=== PATIENT | male | born 1975 | race Caucasian/White ===

== ENCOUNTER 2018-04-22 12:21 | Outpatient (REF) | payer MEDICARE, MEDICAID, SELFPAY ==
[2018-04-22 20:16] LABS: Abs Immature Grans 0.01 k/cumm (0.0-0.09); Absolute Basophil Count 0.01 k/cumm (0.0-0.2); Absolute Lymphocyte Count 1.02 k/cumm (1.2-3.4); Absolute Monocyte Count 0.42 k/cumm (0.11-0.7); Absolute Neutrophil Count 2.12 k/cumm (1.2-6.7); Basophils % 0.3; HCT 47.3 % (40.0-50.0); HGB 16.4 g/dL (13.5-17.5); Immature Grans % 0.3; Lymphocytes % 28.5; Mean Corp. HGB Concentration 34.7 g/dL (32.0-36.0); Mean Corpuscular Hemoglobin 32.1 pg (27.0-33.0); Mean Corpuscular Volume 92.6 fL (80-95); Mean Platelet Volume 9.7 fL (8.0-11.0); Monocytes % 11.7; Neutrophils % 59.2; Platelet Count 211 x1000/uL (130-400); RBC 5.11 m/cumm (4.50-6.00); RBC Distribution Width 12.7 % (11.8-14.1); White Blood Cell Count 3.58 k/cumm (4.4-10.8)
[2018-04-22 20:36] LABS: ALT 42 U/L (12-78); AST 20 U/L (15-37); Albumin 4.2 g/dL (3.4-5.0); Alkaline Phosphatase 87 U/L (46-116); Anion Gap 6.6 mmol/L (3-11); BUN 16 mg/dL (7-18); Bilirubin, Total 0.5 mg/dL (0.2-1.0); CO2 30.4 mmol/L (21.0-32.0); CREATININE 0.96 mg/dL (0.70-1.30); Chloride 103 mmol/L (98-107); Cholesterol 197 mg/dL (50-200); Glucose 89 mg/dL (70-100); HDL Cholesterol 61 mg/dL (40-60); LDL CHOLESTEROL 116 mg/dL (<100); Potassium 5.1 mmol/L (3.5-5.1); Sodium 140 mmol/L (136-145); TSH 0.59 uIU/mL (0.358-3.74); Total Protein 6.8 g/dL (6.4-8.2); Triglyceride 44 mg/dL (30-150)
[2018-04-22 20:53] LABS: FREE T4 1.01 ng/dL (0.76-1.46)
== END 2018-04-22 12:41 ==
LOC: NCHCN 12:21
PROVIDERS: PCP Internal Medicine; Visit Provider Internal Medicine
DX: D72.819 Decreased white blood cell count, unspecified (principal); E89.0 Postprocedural hypothyroidism; F06.8 Other specified mental disorders due to known physiological condition
CPT/HCPCS: 80053; 80061; 83721; 84439; 84443; 85025

== ENCOUNTER 2019-06-24 12:01 | Outpatient (REF) | payer MEDICARE, MEDICAID, SELFPAY ==
[2019-06-24 20:29] LABS: HCT 43.6 % (40.0-50.0); HGB 15.5 g/dL (13.5-17.5); Mean Corp. HGB Concentration 35.6 g/dL (32.0-36.0); Mean Corpuscular Hemoglobin 32.6 pg (27.0-33.0); Mean Corpuscular Volume 91.6 fL (80-95); Mean Platelet Volume 9.6 fL (8.0-11.0); Platelet Count 223 x1000/uL (130-400); RBC 4.76 m/cumm (4.50-6.00); RBC Distribution Width 12.5 % (11.8-14.1); White Blood Cell Count 3.48 k/cumm (4.4-10.8)
[2019-06-24 20:44] LABS: ALT 31 U/L (16-63); AST 18 U/L (15-37); Albumin 4.1 g/dL (3.4-5.0); Alkaline Phosphatase 83 U/L (46-116); Anion Gap 10.7 mmol/L (3-11); BUN 13 mg/dL (7-18); Bilirubin, Total 0.4 mg/dL (0.2-1.0); CO2 27.3 mmol/L (21.0-32.0); CREATININE 0.93 mg/dL (0.70-1.30); Calcium 8.8 mg/dL (8.5-10.1); Chloride 105 mmol/L (98-107); Glucose 98 mg/dL (74-106); LDL CHOLESTEROL 102 mg/dL (<100); Potassium 4.4 mmol/L (3.5-5.1); Sodium 143 mmol/L (136-145); TROPONIN-I 9.8 ug/mL (4.0-12.0); TSH 0.06 uIU/mL (0.36-3.74); Total Protein 6.5 g/dL (6.4-8.2)
== END 2019-06-24 12:21 ==
LOC: NCHCN 12:01
PROVIDERS: PCP Internal Medicine; Visit Provider Internal Medicine
DX: E89.0 Postprocedural hypothyroidism (principal); D72.819 Decreased white blood cell count, unspecified; E66.3 Overweight; Z51.81 Encounter for therapeutic drug level monitoring
CPT/HCPCS: 80053; 83721; 85027; 80156; 84443

== ENCOUNTER 2019-07-28 10:27 | Outpatient (REF) | payer MEDICARE, MEDICAID, SELFPAY ==
[2019-07-28 19:18] LABS: FREE T4 1.09 ng/dL (0.76-1.46); TSH 0.12 uIU/mL (0.36-3.74)
== END 2019-07-28 10:47 ==
LOC: NCHCN 10:27
PROVIDERS: PCP Internal Medicine; Visit Provider Physician Assistant
DX: E89.0 Postprocedural hypothyroidism (principal)
CPT/HCPCS: 84439; 84443

== ENCOUNTER 2019-09-15 08:38 | Outpatient (REF) | payer MEDICARE, MEDICAID, SELFPAY ==
[2019-09-15 19:44] LABS: TSH 0.07 uIU/mL (0.36-3.74)
== END 2019-09-15 08:58 ==
LOC: NCHCN 08:38
PROVIDERS: PCP Internal Medicine; Visit Provider Internal Medicine
DX: E89.0 Postprocedural hypothyroidism (principal)
CPT/HCPCS: 84443

== ENCOUNTER 2019-10-27 14:00 | Outpatient (REF) | payer MEDICARE, MEDICAID, SELFPAY ==
[2019-10-27 20:14] LABS: FREE T4 1.07 ng/dL (0.76-1.46)
== END 2019-10-27 14:20 ==
LOC: NCHCN 14:00
PROVIDERS: PCP Internal Medicine; Visit Provider Internal Medicine
DX: E89.0 Postprocedural hypothyroidism (principal)
CPT/HCPCS: 84439; 84443

== ENCOUNTER 2020-08-26 12:18 | Outpatient (REF) | payer MEDICARE, MEDICAID, SELFPAY ==
[2020-08-26 18:43] LABS: HCT 45.3 % (40.0-50.0); HGB 15.4 g/dL (13.5-17.5); MCH 32.8 pg (27.0-33.0); MCV 96.4 fL (80-95); MPV 9.3 fL (8.0-11.0); Platelet Count 195 10^3/uL (130-400); RDW-SD 43.3 fL
[2020-08-26 19:26] LABS: ALT 37 U/L (16-63); AST 24 U/L (15-37); Albumin 4.2 g/dL (3.4-5.0); Alkaline Phosphatase 64 U/L (46-116); Anion Gap 4.8 mmol/L (3-11); BUN 14 mg/dL (7-18); Bilirubin, Total 0.4 mg/dL (0.2-1.0); CO2 33.2 mmol/L (21.0-32.0); CREATININE 0.9 mg/dL (0.70-1.30); Calcium 8.5 mg/dL (8.5-10.1); Calculated LDL 97 mg/dL (<100); Chloride 103 mmol/L (98-107); Cholesterol 192 mg/dL (<200); Glucose 86 mg/dL (74-106); HDL Cholesterol 84 mg/dL (40-60); Potassium 4.1 mmol/L (3.5-5.1); Sodium 141 mmol/L (136-145); TROPONIN-I 7.7 ug/mL (4.0-12.0); Total Protein 6.8 g/dL (6.4-8.2); Triglyceride 55 mg/dL (<150)
== END 2020-08-26 12:19 | disposition home or self-care (01) ==
LOC: NCHCN 12:18
PROVIDERS: PCP Internal Medicine; Visit Provider Internal Medicine
DX: N32.89 Other specified disorders of bladder (principal); Z87.820 Personal history of traumatic brain injury; Z79.899 Other long term (current) drug therapy; Z51.81 Encounter for therapeutic drug level monitoring; E89.0 Postprocedural hypothyroidism; Z00.00 Encounter for general adult medical examination without abnormal findings
CPT/HCPCS: 80053; 80061; 85027; 80156; 84443

== ENCOUNTER 2021-09-13 18:03 | Outpatient (REF) | payer MEDICARE, MEDICAID, SELFPAY ==
[2021-09-13 22:19] LABS: BUN 20 mg/dL (7-18); Bilirubin, Total 0.5 mg/dL (0.2-1.0); Chloride 105 mmol/L (98-107); Sodium 141 mmol/L (136-145); Total Protein 6.6 g/dL (6.4-8.2)
[2021-09-13 22:27] LABS: ALT 29 U/L (16-63); AST 25 U/L (15-37); Albumin 4.2 g/dL (3.4-5.0); Alkaline Phosphatase 78 U/L (46-116); Anion Gap 11.5 mmol/L (3-11); CO2 24.5 mmol/L (21.0-32.0); Calcium 8.4 mg/dL (8.5-10.1); Glucose 89 mg/dL (74-106); LDL CHOLESTEROL 118 mg/dL (<100); Potassium 4.1 mmol/L (3.5-5.1); TROPONIN-I 10.2 ug/mL (4.0-12.0); TSH 2.47 uIU/mL (0.36-3.74)
== END 2021-09-13 18:04 | disposition home or self-care (01) ==
LOC: NCHCN 18:03
PROVIDERS: PCP Internal Medicine; Visit Provider Internal Medicine
DX: E89.0 Postprocedural hypothyroidism (principal); F32.9 Major depressive disorder, single episode, unspecified; F06.8 Other specified mental disorders due to known physiological condition; Z51.81 Encounter for therapeutic drug level monitoring; Z79.899 Other long term (current) drug therapy
CPT/HCPCS: 80053; 83721; 80156; 84443

== ENCOUNTER 2021-12-27 12:21 | Outpatient (REF) | payer MEDICARE, MEDICAID, SELFPAY ==
[2021-12-27 20:30] LABS: Bilirubin Negative (Negative); Blood Negative (Negative); Clarity Clear (Clear); Glucose Negative (Negative); Ketones Negative (Negative); Leukocyte Esterase Negative (Negative); Nitrite Negative (Negative); Specific Gravity 1.015 (1.005-1.025); Urobilinogen 0.2 EU/dL (Up TO 0.2)
== END 2021-12-27 12:22 | disposition home or self-care (01) ==
LOC: NCHCN 12:21
PROVIDERS: PCP Internal Medicine; Visit Provider Nurse Practitioner Family
DX: R35.0 Frequency of micturition (principal)
CPT/HCPCS: 81003

== ENCOUNTER 2022-09-10 17:59 | Outpatient (REF) | payer MEDICARE, MEDICAID, SELFPAY ==
[2022-09-10 20:53] LABS: ALT 55 U/L (16-63); AST 39 U/L (15-37); Albumin 4.2 g/dL (3.4-5.0); Alkaline Phosphatase 62 U/L (46-116); Anion Gap 8.4 mmol/L (3-11); BUN 16 mg/dL (7-18); Bilirubin, Total 0.3 mg/dL (0.2-1.0); CO2 29.6 mmol/L (21.0-32.0); Calcium 9.5 mg/dL (8.5-10.1); Chloride 106 mmol/L (98-107); Estimated GFR 92.26 (mL/min/1.73m2); Glucose 99 mg/dL (74-106); Potassium 4.9 mmol/L (3.5-5.1); Sodium 144 mmol/L (136-145); TSH (W/Ref FT4) 5.24 uIU/mL (0.36-3.74); Total Protein 7.4 g/dL (6.4-8.2)
[2022-09-10 21:22] LABS: FREE T4 0.83 ng/dL (0.76-1.46)
[2022-09-12 10:20] LABS: Hepatitis C Ab w Rflx HCV PCR Negative (Negative)
[2022-09-12 10:29] LABS: HIV-1/2 Ag & Ab Screen Negative (Negative)
== END 2022-09-10 18:00 | disposition home or self-care (01) ==
LOC: NCHCN 17:59
PROVIDERS: PCP Internal Medicine; Visit Provider Internal Medicine
DX: R63.4 Abnormal weight loss (principal); D89.0 Polyclonal hypergammaglobulinemia; Z11.4 Encounter for screening for human immunodeficiency virus [HIV]; Z11.59 Encounter for screening for other viral diseases
CPT/HCPCS: 80053; 86803; 87389; 84439; 84443

== ENCOUNTER → 2022-09-13 13:19 | Outpatient (BNVA) | payer MEDICARE, MEDICAID, SELFPAY | PROVIDERS: PCP Internal Medicine; Referring Provider Internal Medicine; Visit Provider Physical Therapy Assistant | DX: Z12.11 Encounter for screening for malignant neoplasm of colon (principal) ==

== ENCOUNTER 2022-10-04 07:28 | Day surgery (SDC) | payer MEDICARE, MEDICAID, SELFPAY ==
[2022-10-04 07:38] VITALS: BP 121/82; PULSE 71; RESP 16; TEMP 36.1; O2SAT 98
[2022-10-04] MEDS: Lactated Ringers 1,000 ML 80 ML IV (08:20)
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
[2022-10-04 08:36] VITALS: BMI 26.1
--- NOTE | 2022-10-04 08:46 | W.PM.DSUDISC ---
Date of service: 10/04/22 Time of Service: 08:46 Discharge Plan Disposition Patient Disposition: Home Condition: Good Discharge Details Reason For Visit: Colonoscopy Attending Provider: Asa Niño Primary Care Provider: Milton Matthew Home Meds and New Rx's Prescriptions: Continued Myrbetriq 50 mg tablet extended release 24 hr 50 mg PO DAILY acetaminophen 500 MG tablet 500 mg PO DAILY levothyroxine [Synthroid] 100 MCG tablet 200 mcg PO DAILY magnesium hydroxide [Milk of Magnesia] 400 MG/5 ML suspension 5 ml PO ONCE simvastatin 20 MG tablet 40 mg PO DAILY simethicone 125 MG tablet,chewable 125 mg PO DAILY risperidone [Risperdal] 0.5 MG tablet 1 mg PO BID ibuprofen [Ibuprofen Jr Strength] 100 MG tablet,chewable 200 mg PO Q6H PRN carbamazepine 100 MG capsule, ER multiphase 12 hr 200 mg PO TID latanoprost [Xalatan] 0.005 % drops 1 drp ophthalmic (eye) DAILY levothyroxine [Synthroid] 25 mcg tablet 50 mcg PO DAILY Discontinued polyethylene glycol 3350 17 gram/dose powder 238 g PO ONCE Qty: 238 0RF Rx Instructions: take per colonoscopy instructions bisacodyl [Dulcolax (bisacodyl)] 5 mg tablet,delayed release (DR/EC) 5 mg PO ONCE Qty: 4 0RF Rx Instructions: take per colonoscopy instructions Discharge Instructions Additional Instructions: Moira, we completed your colonoscopy today without any difficulty. It was normal. You should have another colonoscopy in 10 years. 1. If tolerated, consume a soft, low fiber diet for 1-2 days. 2[address] Do not drive, drink alcohol, operate machinery, make critical decisions, or do activities that require coordination or balance for 24 hours. 3. Because air was put into your colon during the procedure, expelling air from your rectum (passing gas or farting) is normal. 4. You may not have a bowel movement for 1-3 days because of the colonoscopy prep. This is normal. 5. Go directly to the emergency room if you notice any of the following: Develop chills (warm to touch), or if you have a thermometer and your temperature is above 101 Difficulty breathing or difficultly swallowing Persistent vomiting Severe abdominal pain, other than gas cramps Severe chest pain Black, tarry stools Any bleeding ? exceeding one tablespoon 6. Call your physician if the site where your intravenous was started becomes red, swollen, painful, and warm to touch. 7. Your physician has reviewed your pre-procedure medications. Please continue to take those medications as previously ordered. You will be given specific information/education regarding any changes to your medications before leaving. Activity:: Activity as Tolerated Diet:: As Tolerated Discharge Orders Discharge Orders: Discharge Order (Routine); Ordered 10/04/22 Ordered By: Asa Niño DS: Diagnosis Discharge Diagnosis (1) Screening for colon cancer: Status: Acute Asessment and Plan: Normal screening colonoscopy. Follow-up should be in 10 years
--- NOTE | 2022-10-04 08:47 | W.COLOREPORT ---
Date of service: 10/04/22 Time of Service: 09:21 Colonoscopy Report Date of procedure: 10/04/22 Pre-op diagnosis general: Screening colonoscopy Post-op diagnosis procedure note: same Procedure: Colonoscopy Surgeon: Asa Niño Anesthesia Type: General:No Airway Estimated blood loss (mL): 0 Pathology: none sent Complications: None Disposition: same day Indications: Moira is a 47-year-old male here for screening colonoscopy Prep: Miralax/Dulcolax Procedure Start Time: 08:59 Procedure End Time: 09:13 Retraction Time: 9 Findings: Normal screening colonoscopy Procedure Description: After the induction of monitored anesthetic care, and with the patient in left lateral decubitus position, I began by performing an external anorectal exam.? Perineum and skin were normal, as was the anal verge.? There was no not evidence of external hemorrhoids.? Next, I performed a digital rectal exam.? I did appreciate any abnormal findings.? Next, I advanced a colonoscope into the rectal vault.? I performed retroflexion.? This was normal.? Using insufflation, I then advanced the colonoscope beyond the rectal folds and into the sigmoid colon before advancing towards the cecum.? The quality of the prep was excellent.? The scope was noted to be in the cecum by identification of the ileocecal valve and appendiceal orifice.? I then began withdrawing the colonoscope using repeated irrigation as necessary for full evaluation of the colonic mucosa. ?Once the scope was withdrawn to the level of the rectum, great care was taken to examine portions of the rectal folds.? I did not see any signs of tumors or polyps. Finally, the scope was withdrawn and the patient was brought to the same-day surgery recovery unit as the anesthetic wore off. ?The findings and instructions were shared with the patient prior to discharge.
[2022-10-04 09:19] VITALS: BP 106/83; PULSE 72; RESP 18; TEMP 36.4; O2SAT 97
--- NOTE | 2022-10-04 09:40 | W.ANESPOSTOP ---
Postoperative Evaluation Date, Time and Location Date Performed: 10/04/22 Time Performed: 09:40 Patient Location: Day Surgery Unit Vital Signs Most Recent Imported Vital Signs: Most Recent Vital Signs Temp Pulse Resp BP Pulse Ox 36.4 C L 72 18 106/83 97 10/04/22 09:19 10/04/22 09:19 10/04/22 09:19 10/04/22 09:19 10/04/22 09:19 Pain Score Most Recent Pain Score: Most Recent Pain Score Pain Level 0 10/04/22 09:19 Assessment Mental Status: Awake (Alert & Oriented to Patient Baseline) Airway and Respiratory Function: Patent airway with normal (patient baseline) respiratory exam Cardiovascular Function: Hemodynamically Stable Hydration Status: Adequately Hydrated Nausea & Vomiting: No Nausea or Vomiting Pain: Pt. Denies Any Pain Peripheral Nerve Block: Patient did not receive a nerve block
[2022-10-04 09:45] VITALS: BP 114/72; PULSE 71; RESP 18; TEMP 36.6; O2SAT 99
== END 2022-10-04 10:03 | disposition home or self-care (01) ==
PROVIDERS: PCP Nurse Practitioner Family; Visit Provider Surgery
PROC: 0DJD8ZZ Inspection of Lower Intestinal Tract, Via Natural or Artificial Opening Endoscopic (ICD-10-PCS; CPT 45378; principal; 2022-10-04 09:00)
DX: Z12.11 Encounter for screening for malignant neoplasm of colon (principal)
CPT/HCPCS: G0121; J2001

== ENCOUNTER → 2023-01-01 13:35 | Outpatient (BNVA) | payer MEDICARE, MEDICAID, SELFPAY | PROVIDERS: PCP Nurse Practitioner Family; Referring Provider Nurse Practitioner Family; Visit Provider Psychiatry & Neurology Neurology | DX: R41.844 Frontal lobe and executive function deficit (principal); F94.2 Disinhibited attachment disorder of childhood; F06.8 Other specified mental disorders due to known physiological condition; H53.461 Homonymous bilateral field defects, right side; G81.11 Spastic hemiplegia affecting right dominant side; Z87.820 Personal history of traumatic brain injury; D72.819 Decreased white blood cell count, unspecified | CPT/HCPCS: 99215 ==

== ENCOUNTER → 2023-03-05 11:01 | Outpatient (BNVA) | payer MEDICARE, MEDICAID, SELFPAY | PROVIDERS: PCP Nurse Practitioner Family; Referring Provider Nurse Practitioner Family; Visit Provider Psychiatry & Neurology Neurology | DX: R41.844 Frontal lobe and executive function deficit (principal); Z87.820 Personal history of traumatic brain injury; F94.2 Disinhibited attachment disorder of childhood; D72.819 Decreased white blood cell count, unspecified; F06.8 Other specified mental disorders due to known physiological condition; H53.461 Homonymous bilateral field defects, right side; G81.11 Spastic hemiplegia affecting right dominant side | CPT/HCPCS: 99214 ==

== ENCOUNTER 2023-12-11 09:37 | Outpatient (CLI) | payer MEDICARE, MEDICAID, SELFPAY ==
[2023-12-11 12:43] LABS: Absolute Basophil Count 0.02 10^3/uL (0.0-0.2); Absolute Lymphocyte Count 0.92 10^3/uL (1.2-3.4); Absolute Monocyte Count 0.38 10^3/uL (0.1-0.8); Absolute Neutrophil Count 1.92 10^3/uL (1.2-6.7); Basophils % 0.6 %; HCT 45.1 % (40.0-50.0); HGB 15.8 g/dL (13.5-17.5); Lymphocytes % 28.4 %; MCH 32.4 pg (27.0-33.0); MCV 92 fL (80-95); MPV 9.4 fL (8.0-11.0); Monocytes % 11.7 %; Neutrophils % 59.3 %; Platelet Count 167 10^3/uL (130-400); RBC 4.88 10^6/uL (4.36-5.78); RDW-SD 41.5 fL; WBC 3.24 10^3/uL (4.4-10.8)
[2023-12-11 13:38] LABS: Calculated LDL 104 mg/dL (<100); Cholesterol 199 mg/dL (<200); HDL Cholesterol 90 mg/dL (40-60); TSH (W/Ref FT4) 0.02 uIU/mL (0.36-3.74); Triglyceride 27 mg/dL (<150)
[2023-12-11 13:52] LABS: ALT 35 U/L (16-63); AST 20 U/L (15-37); Albumin 4.2 g/dL (3.4-5.0); Alkaline Phosphatase 89 U/L (46-116); BUN 17 mg/dL (7-18); Bilirubin, Total 0.69 mg/dL (0.2-1.0); CREATININE 1.1 mg/dL (0.70-1.30); Calcium 9.4 mg/dL (8.5-10.1); Chloride 105 mmol/L (98-107); Estimated GFR 81.78 (mL/min/1.73m2); Glucose 94 mg/dL (74-106); Potassium 4.5 mmol/L (3.5-5.1); Sodium 142 mmol/L (136-145); TROPONIN-I 3.7 ug/mL (4.0-12.0); Total Protein 6.6 g/dL (6.4-8.2); Vitamin D 25 Total 50.8 ng/mL (30-100)
[2023-12-11 13:57] LABS: FREE T4 1.34 ng/dL (0.76-1.46)
[2023-12-11 16:49] LABS: Hemoglobin A1C 4.9 % (<5.7)
[2023-12-11 22:24] LABS: PSA, Screening 0.4 ng/mL (<=3.5)
== END 2023-12-11 09:38 | disposition home or self-care (01) ==
LOC: LOS 09:37
PROVIDERS: Registered Nurse; PCP Nurse Practitioner Family; Referring Provider Nurse Practitioner Family; Visit Provider Nurse Practitioner Family
DX: E89.0 Postprocedural hypothyroidism (principal); Z13.6 Encounter for screening for cardiovascular disorders; Z12.5 Encounter for screening for malignant neoplasm of prostate; Z13.1 Encounter for screening for diabetes mellitus; F06.8 Other specified mental disorders due to known physiological condition; R41.844 Frontal lobe and executive function deficit
CPT/HCPCS: 36415; 80053; 80061; 82306; 84153; 80156; 83036; 84439; 84443; 85025

== ENCOUNTER 2025-01-27 01:51 | Outpatient (CLI) | payer MEDICARE, MEDICAID, SELFPAY ==
[2025-01-27 10:36] LABS: Cholesterol 182 mg/dL (<200); HDL Cholesterol 82 mg/dL (>or=40); TSH (W/Ref FT4) 0.03 uIU/mL (0.36-3.74)
[2025-01-27 10:39] LABS: Triglyceride <25 mg/dL (<150)
[2025-01-27 14:50] LABS: Hemoglobin A1C 5.0 % (<5.7)
[2025-01-27 18:45] LABS: PSA, Screening 0.4 ng/mL (<=3.5)
[2025-01-28 08:16] LABS: LDL CHOLESTEROL 76 mg/dL (<160)
== END 2025-01-27 01:52 | disposition home or self-care (01) ==
LOC: LBO 01:51
PROVIDERS: PCP Nurse Practitioner Family; Visit Provider Nurse Practitioner Family
DX: Z13.1 Encounter for screening for diabetes mellitus (principal); Z13.6 Encounter for screening for cardiovascular disorders; Z12.5 Encounter for screening for malignant neoplasm of prostate; E89.0 Postprocedural hypothyroidism
CPT/HCPCS: 36415; 80061; 83721; 84153; 83036; 84439; 84443